=== PATIENT | female | born 1965 | race Caucasian/White ===

== ENCOUNTER → 2016-09-29 08:52 | Outpatient (CLI) | payer OTHER | END | disposition home or self-care (01) | LOC: D.US 08:52 | DX: R10.11 Right upper quadrant pain (principal) ==

== ENCOUNTER → 2016-10-13 12:40 | Outpatient (CLI) | payer OTHER | END | disposition home or self-care (01) | LOC: D.NM 12:40 | DX: R10.11 Right upper quadrant pain (principal) ==

== ENCOUNTER 2016-11-02 06:28 | Day surgery (SDC) | payer OTHER ==
[~2016-11-02] VITALS: Ht 172.7 cm; Wt 56.7 kg
[~2016-11-02 06:28] MED LIST: OXYBUTYNIN CHLOR5 MG PO; ZANTAC150 MG PO
[2016-11-02 07:23] LABS: BASOPHILS 0.8 % (0-2); EOSINOPHILS 3.7 % (0-7); HEMOGLOBIN 11.9 g/dL (12-16); LYMPHOCYTES 38.3 % (15-50); MCH 30.7 pg (26.0-34.0); MCHC 33.1 g/dL (31.0-37.0); MCV 92.8 fL (80.0-100.0); MEAN PLATELET VOLUME 9.9 fL (7.4-10.4); MONOCYTES 8.2 % (2-11); PLATELET COUNT 173 10x3/uL (130-400); RBC 3.88 10x6/uL (4.00-5.40); RDW 12.3 % (11.5-14.5); WBC 3.8 10x3/uL (4.8-10.8)
[2016-11-02 07:41] LABS: CALC OSMOLALITY 284 mosm/kg (275-300); CALCIUM 8.5 mg/dL (8.5-10.1); CARBON DIOXIDE 27.4 mmol/L (21.0-32.0); CHLORIDE - SERUM 106 mmol/L (98-107); CREATININE - SERUM 0.8 mg/dL (0.6-1.3); GLUCOSE 89 mg/dL (74-106); POTASSIUM - SERUM 4.3 mmol/L (3.5-5.1); SODIUM 142 mmol/L (136-145); UREA NITROGEN 20 mg/dL (7-18); eGFR NON AFRICAN AMERICAN 79 mL/min (90-120)
[2016-11-02 07:43] VITALS: BP 118/83; Ht 172.7 cm; Wt 56.7 kg
[2016-11-02 07:51] LABS: HCG URINE NEGATIVE (NEGATIVE)
[2016-11-02] MEDS ORDERED: ULTRAM50 MG PO (13:14)
--- NOTE | 2016-11-02 15:36 | NUR ---
1520 REMOVED PIV WITH CATHETER TIP INTACT DC TEACHING COMPLETE W/PRESCRIPT GIVEN TO PT VOIDED AFTER GETTING DRESSED. 1530 PT DC HOME WITH VIA WC OUT TO [facility].
--- NOTE | 2016-11-03 14:51 | OP ---
PATIENT NAME: SARA SUAREZ MEDICAL RECORD: [id number] :61 LOCATION:D.OPS ADMISSION DATE: SURGEON: GREGG DAILEY MD DATE OF OPERATION: 11/02/2016 PREOPERATIVE DIAGNOSES: 1. Gallstones. 2. Diabetes mellitus. POSTOPERATIVE DIAGNOSES: 1. Gallstones. 2. Diabetes mellitus. PROCEDURE: Laparoscopic cholecystectomy. SURGEON: Gregg Dailey MD REPORT OF PROCEDURE: The patient's abdomen was prepped and draped in sterile fashion. A cutdown was made on the superior aspect of the umbilicus, 0 Vicryls were placed in the fascia bilaterally and the fascia was incised with 15-blade. I then bluntly entered the peritoneal cavity and placed a 12-mm Giancarlo port. Under direct visualization, a 5 mm trocar was placed in the epigastrium and 2 more 5-mm trocars were placed in the right subcostal region. The gallbladder was grasped and elevated. The cystic artery and cystic duct were dissected free and these were clipped proximally and distally and ligated in standard fashion. The gallbladder was taken off the liver bed using electrocautery and placed into an Endo Catch bag. The right upper quadrant was irrigated out and care was taken to make sure there was no sign of any bleeding or bile leakage. At this point, the ports and insufflation were then removed and the gallbladder was taken out through the umbilicus. The umbilical fascia was closed with interrupted 0 Vicryls times 3. The wounds were irrigated out with normal saline and infused with 10 mL of 0.25% Marcaine with epinephrine. The skin incisions were all closed with subcutaneous 5-0 Monocryl and dressed appropriately. COMPLICATIONS: None. CONDITION: Stable. ANESTHESIA: General endotracheal and local. BLOOD LOSS: Minimal. 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
== END 2016-11-02 15:30 | disposition home or self-care (01) ==
LOC: D.OPS 06:28
PROVIDERS: Surgery
DX: K80.20 Calculus of gallbladder without cholecystitis without obstruction (principal); E11.9 Type 2 diabetes mellitus without complications; Z01.812 Encounter for preprocedural laboratory examination